=== PATIENT | male | born 1965 | race Caucasian/White ===

== ENCOUNTER → 2024-02-21 07:43 | Outpatient (REF) | payer OTHER, SELFPAY | LOC: RCS 07:43 | PROVIDERS: ATTENDING PHYSICIAN Internal Medicine Cardiovascular Disease; FAMILY PHYSICIAN Family Medicine | DX: I25.10 Atherosclerotic heart disease of native coronary artery without angina pectoris (principal); Z95.5 Presence of coronary angioplasty implant and graft; E78.00 Pure hypercholesterolemia, unspecified | CPT/HCPCS: 78452; 93017; A9500 ==

== ENCOUNTER → 2024-04-23 09:19 | Outpatient (REF) | payer OTHER, SELFPAY | LOC: RCS 09:19 | PROVIDERS: ATTENDING PHYSICIAN Internal Medicine Cardiovascular Disease; FAMILY PHYSICIAN Family Medicine | DX: I10 Essential (primary) hypertension (principal); Z95.5 Presence of coronary angioplasty implant and graft; I34.0 Nonrheumatic mitral (valve) insufficiency | CPT/HCPCS: 93306 ==